=== PATIENT | female | born 1970 | race Hispanic/Latino ===

== ENCOUNTER 2019-04-27 07:32 | Emergency (ER) | payer BC, OTHER ==
[2019-04-27] MEDS ORDERED: ONDANSETRON ODT 4 MG TAB ONE (08:01)
[2019-04-27 08:14] LABS: BASOPHILS % (AUTO) 0.4 % (0.0-5.0); EOSINOPHILS % (AUTO) 1.3 % (0.0-8.0); HEMATOCRIT 38.3 % (36-48); LYMPHOCYTES % (AUTO) 7.9 % (21.0-51.0); MEAN CORPUSCULAR HEMOGLOBIN 28.3 pg (27.0-33.0); MEAN CORPUSCULAR HGB CONC 31.9 g/dL (32.0-36.0); MEAN CORPUSCULAR VOLUME 88.9 fL (79-99); MONOCYTES % (AUTO) 9.4 % (3.0-13.0); NEUTROPHILS % (AUTO) 80.2 % (40.0-77.0); PLATELET COUNT (AUTO) 194 K/uL (130-400); RED BLOOD CELL COUNT(AUTO) 4.31 MIL/uL (4.00-5.50); RED CELL DISTRIBUTION WIDTH 13.7 % (11.0-15.5); WHITE BLOOD COUNT (AUTO) 7.7 K/uL (4.8-10.8)
[2019-04-27 08:23] LABS: CREATININE 1.4 mg/dL (0.5-1.5)
[2019-04-27 08:27] LABS: RAPID GROUP A STREP NEGATIVE (NEGATIVE)
[2019-04-27] MEDS ORDERED: ACETAMINOPHEN EXTRA STRENGTH 500 MG TABLET ONE (10:37)
== END 2019-04-27 11:34 | disposition home or self-care (01) ==
LOC: EDH 07:32
DX: J09.X2 Influenza due to identified novel influenza A virus with other respiratory manifestations (principal)
CPT/HCPCS: 36415; 71046; 80048; 85025; 87804; 87880

== ENCOUNTER 2020-12-22 10:55 | Inpatient (IN) | payer BC, OTHER ==
[~2020-12-22] VITALS: Ht 152.4 cm; Wt 62.7 kg
[2020-12-22 11:21] LABS: BASOPHILS % (AUTO) 0.2 % (0.0-5.0); EOSINOPHILS % (AUTO) 0.3 % (0.0-8.0); HEMATOCRIT 38.1 % (36-48); LYMPHOCYTES % (AUTO) 8.7 % (21.0-51.0); MEAN CORPUSCULAR HEMOGLOBIN 28.3 pg (27.0-33.0); MEAN CORPUSCULAR HGB CONC 31.5 g/dL (32.0-36.0); MEAN CORPUSCULAR VOLUME 89.9 fL (79-99); MONOCYTES % (AUTO) 6.7 % (3.0-13.0); NEUTROPHILS % (AUTO) 82.8 % (40.0-77.0); PLATELET COUNT (AUTO) 213 K/uL (130-400); RED BLOOD CELL COUNT(AUTO) 4.24 MIL/uL (4.00-5.50); RED CELL DISTRIBUTION WIDTH 13.9 % (11.0-15.5)
[2020-12-22 11:30] LABS: CREATININE 1.5 mg/dL (0.5-1.5); POTASSIUM 3.6 mmol/L (3.5-5.1)
[2020-12-22] MEDS ORDERED: MORPHINE 4 MG SYG IV ONE (11:30)
[2020-12-22] MEDS ORDERED: ONDANSETRON 4MG INJ IVP ONE (11:30)
[2020-12-22 11:34] LABS: ALBUMIN 3.5 g/dL (3.5-5.0); BILIRUBIN,TOTAL 0.7 mg/dL (0.2-1.0); TOTAL PROTEIN, SERUM 6.9 g/dL (6.0-8.3)
[2020-12-22] MEDS ORDERED: TACR1CAP10 PO (12:00)
[2020-12-22] MEDS ORDERED: BIOT10005 PO (12:00)
[2020-12-22] MEDS ORDERED: LEVO75TA4 PO (12:13)
[2020-12-22] MEDS ORDERED: CRAN1CAP2 PO (12:13)
[2020-12-22] MEDS ORDERED: FAMO20TA8 PO (12:13)
[2020-12-22] MEDS ORDERED: CHOL200041 PO (12:13)
[2020-12-22] MEDS ORDERED: LACT1CAP78 PO (12:13)
[2020-12-22] MEDS ORDERED: MYCO250C7 PO (12:13)
[2020-12-22] MEDS ORDERED: FOLI0.4T6 PO (12:13)
[2020-12-22] MEDS ORDERED: PRED5TAB44 PO (12:13)
[2020-12-22 12:32] LABS: APPEARANCE,URINE Clear (CLEAR); BILIRUBIN,URINE Negative (NEGATIVE); COLOR,URINE Yellow (YELLOW); GLUCOSE, URINE (UA) Negative (NEGATIVE); KETONES,URINE Negative (NEGATIVE); LEUKOCYTE ESTERASE ,URINE Small (NEGATIVE); NITRATE,URINE Negative (NEGATIVE); OCCULT BLOOD,URINE Negative (NEGATIVE); PROTEIN,URINE Negative (NEGATIVE); UROBILINOGEN,URINE 0.2 mg/dL (0.2-1.0)
[2020-12-22 13:15] LABS: SQUAMOUS EPITHELIAL CELL,UR Few /HPF (0-2)
[2020-12-22 13:16] LABS: BACTERIA,URINE Rare /HPF (None Seen); RBC,URINE None Seen /HPF (0-1); WBC,URINE 0-1 /HPF (0-1)
[2020-12-22] MEDS ORDERED: 0.9%NACL 1000ML 1,000 ML IV SCH (13:30)
[2020-12-22] MEDS: ZOSYN 3.375GM+NS 50ML 50 ML IV SCH ×2 (13:30→22:30)
[2020-12-22] MEDS ORDERED: ZOSYN 3.375GM+NS 50ML 3.38 GM in 0.9%NACL 50ML 50 ML IV SCH (13:30)
[2020-12-22] MEDS ORDERED: ONDANSETRON 4MG TABLET PO PRN (14:30)
[2020-12-22] MEDS ORDERED: MORPHINE 4 MG SYG IVP PRN (14:30)
[2020-12-22] MEDS: DEXTROSE 5 % AND 0.9 % NACL 1,000 ML IV SCH (14:43)
[2020-12-22] MEDS ORDERED: 0.9%NACL 50ML 50 ML IV ONE ×2 (17:03→22:16)
[2020-12-22] MEDS ORDERED: DORZ1DRO7 OP (21:18)
[2020-12-22] MEDS ORDERED: ALBUTEROL IH (21:18)
[2020-12-22] MEDS ORDERED: MONT-39 PO (21:18)
[2020-12-22] MEDS ORDERED: ZOLP5TAB8 PO (21:18)
[2020-12-22] MEDS ORDERED: BIMA12.5OS OD (21:18)
[2020-12-22] MEDS ORDERED: FURO40TA5 PO (21:18)
[2020-12-22] MEDS ORDERED: CELE100C97 PO (21:18)
[2020-12-22] MEDS ORDERED: POTA99TA26 PO (21:18)
[2020-12-22] MEDS ORDERED: ESOM40CA54 PO (21:18)
[2020-12-22] MEDS ORDERED: SOLI10TA7 PO (21:18)
[2020-12-22] MEDS ORDERED: CALC-1009 PO (21:18)
[2020-12-22] MEDS ORDERED: LEVO75CA5 PO (21:18)
[2020-12-22] MEDS ORDERED: ESCI-8 PO (21:18)
[2020-12-22] MEDS ORDERED: ASPI-1197 PO (21:18)
[2020-12-22] MEDS ORDERED: IPRATROPIUM IH (21:23)
[2020-12-22] MEDS ORDERED: FLUTICASONE PO (21:23)
[2020-12-23] MEDS: ZOSYN 3.375GM+NS 50ML 50 ML IV SCH ×3 (05:19→20:55)
[2020-12-23 05:57] LABS: BASOPHILS % (AUTO) 0.2 % (0.0-5.0); EOSINOPHILS % (AUTO) 0.4 % (0.0-8.0); HEMATOCRIT 37.2 % (36-48); LYMPHOCYTES % (AUTO) 5.3 % (21.0-51.0); MEAN CORPUSCULAR HEMOGLOBIN 28.4 pg (27.0-33.0); MEAN CORPUSCULAR HGB CONC 31.7 g/dL (32.0-36.0); MEAN CORPUSCULAR VOLUME 89.4 fL (79-99); MONOCYTES % (AUTO) 5.1 % (3.0-13.0); NEUTROPHILS % (AUTO) 87.8 % (40.0-77.0); PLATELET COUNT (AUTO) 210 K/uL (130-400); RED BLOOD CELL COUNT(AUTO) 4.16 MIL/uL (4.00-5.50); RED CELL DISTRIBUTION WIDTH 13.8 % (11.0-15.5); WHITE BLOOD COUNT (AUTO) 17.4 K/uL (4.8-10.8)
[2020-12-23 06:06] LABS: CREATININE 1.4 mg/dL (0.5-1.5); MAGNESIUM 1.5 mg/dL (1.80-2.40); POTASSIUM 4.5 mmol/L (3.5-5.1)
[2020-12-23] MEDS: ACETAMINOPHEN 325 MG TAB PO PRN ×2 (08:27→14:59)
[2020-12-23] MEDS ORDERED: MYCO250C7 PO (09:15)
[2020-12-23] MEDS ORDERED: FOLI0.4T6 PO (09:17)
[2020-12-23] MEDS ORDERED: CRAN1CAP2 PO (09:21)
[2020-12-23] MEDS ORDERED: PROP1DRO2 OP (09:25)
[2020-12-23] MEDS ORDERED: MULT-1290 PO (09:28)
[2020-12-23 12:50] VITALS: BP 129/81
[2020-12-23] MEDS: DEXTROSE 5 % AND 0.9 % NACL 1,000 ML IV SCH ×2 (14:05→16:48)
[2020-12-23] MEDS ORDERED: MAGNESIUM 2GM PREMIX 50ML 50 ML IV SCH (14:30)
[2020-12-23 15:30] VITALS: BP 114/66
[2020-12-23 19:58] VITALS: BP 123/79
[2020-12-23] MEDS: MYCOPHENOLATE MOFETIL 250 MG CAPSULE PO SCH (21:00)
[2020-12-23 23:28] VITALS: BP 100/61
[2020-12-24] MEDS: DEXTROSE 5 % AND 0.9 % NACL 1,000 ML IV SCH ×2 (00:28→19:50)
[2020-12-24 03:48] VITALS: BP 105/54
[2020-12-24] MEDS: LEVOTHYROXINE 75 MCG TABLET PO SCH (06:02)
[2020-12-24] MEDS: ZOSYN 3.375GM+NS 50ML 50 ML IV SCH ×3 (06:03→23:22)
[2020-12-24 07:26] LABS: CREATININE 1.3 mg/dL (0.5-1.5); POTASSIUM 4.5 mmol/L (3.5-5.1)
[2020-12-24] MEDS ORDERED: PRED5TAB PO (07:28)
[2020-12-24 08:00] VITALS: BP 116/75
[2020-12-24] MEDS: MULTIVITAMIN TABLET PO SCH (08:38)
[2020-12-24] MEDS: FOLIC ACID 1 MG TABLET PO SCH (08:38)
[2020-12-24] MEDS: MYCOPHENOLATE MOFETIL 250 MG CAPSULE PO SCH ×2 (08:38→21:00)
[2020-12-24] MEDS: FAMOTIDINE 20MG TAB PO SCH (08:38)
[2020-12-24] MEDS: ARTIFICAL TEARS SOL 15 ML OP SCH (08:38)
[2020-12-24] MEDS: ASCORBIC ACID PO SCH (08:39)
[2020-12-24] MEDS: [UNRECOGNIZED DRUG - OTHER] PO SCH (08:39)
[2020-12-24] MEDS: BIOTIN 10000 MCG PO SCH (08:39)
[2020-12-24] MEDS: CHOLECALCIFEROL 25 MCG PO SCH (08:39)
[2020-12-24] MEDS: CRANBERRY PO SCH (08:39)
[2020-12-24] MEDS ORDERED: CRANBERRY PO SCH (09:00)
[2020-12-24] MEDS ORDERED: ASCORBIC ACID PO SCH (09:00)
[2020-12-24] MEDS ORDERED: [UNRECOGNIZED DRUG - OTHER] PO SCH (09:00)
[2020-12-24] MEDS: PREDNISONE 5 MG TABLET PO SCH (11:46)
[2020-12-24 12:00] VITALS: BP 136/83
[2020-12-24] MEDS: ACETAMINOPHEN 325 MG TAB PO PRN (14:06)
[2020-12-24 16:00] VITALS: BP 130/85
[2020-12-24 19:53] VITALS: BP 139/84
[2020-12-24 23:19] VITALS: BP 130/82
[2020-12-25 04:23] VITALS: BP 131/74
[2020-12-25 05:31] LABS: HEMATOCRIT 36.8 % (36-48); MEAN CORPUSCULAR HEMOGLOBIN 28.4 pg (27.0-33.0); MEAN CORPUSCULAR HGB CONC 31.5 g/dL (32.0-36.0); MEAN CORPUSCULAR VOLUME 90.2 fL (79-99); RED BLOOD CELL COUNT(AUTO) 4.08 MIL/uL (4.00-5.50); RED CELL DISTRIBUTION WIDTH 13.8 % (11.0-15.5); WHITE BLOOD COUNT (AUTO) 12.2 K/uL (4.8-10.8)
[2020-12-25 05:47] LABS: CREATININE 1.4 mg/dL (0.5-1.5); MAGNESIUM 1.8 mg/dL (1.80-2.40); POTASSIUM 4.2 mmol/L (3.5-5.1)
[2020-12-25] MEDS: LEVOTHYROXINE 75 MCG TABLET PO SCH (06:31)
[2020-12-25] MEDS: ZOSYN 3.375GM+NS 50ML 50 ML IV SCH ×3 (06:31→20:25)
[2020-12-25 07:45] VITALS: BP 132/88
[2020-12-25] MEDS: ASCORBIC ACID PO SCH (09:00)
[2020-12-25] MEDS: BIOTIN 10000 MCG PO SCH (09:00)
[2020-12-25] MEDS: CRANBERRY PO SCH (09:00)
[2020-12-25] MEDS: CHOLECALCIFEROL 25 MCG PO SCH (09:00)
[2020-12-25] MEDS: [UNRECOGNIZED DRUG - OTHER] PO SCH (09:00)
[2020-12-25] MEDS: MYCOPHENOLATE MOFETIL 250 MG CAPSULE PO SCH ×3 (09:00→20:31)
[2020-12-25] MEDS: ARTIFICAL TEARS SOL 15 ML OP SCH (10:22)
[2020-12-25] MEDS: MULTIVITAMIN TABLET PO SCH (10:22)
[2020-12-25] MEDS: FOLIC ACID 1 MG TABLET PO SCH (10:22)
[2020-12-25] MEDS: FAMOTIDINE 20MG TAB PO SCH (10:22)
[2020-12-25 11:45] VITALS: BP 131/85
[2020-12-25] MEDS: PREDNISONE 5 MG TABLET PO SCH (12:53)
[2020-12-25 15:40] VITALS: BP 126/81
[2020-12-25 20:00] VITALS: BP 127/81
[2020-12-26] VITALS: BP 123/72
[2020-12-26 04:00] VITALS: BP 116/74
[2020-12-26] MEDS: ZOSYN 3.375GM+NS 50ML 50 ML IV SCH (04:33)
[2020-12-26] MEDS: LEVOTHYROXINE 75 MCG TABLET PO SCH (05:43)
[2020-12-26 07:50] VITALS: BP 122/79
[2020-12-26] MEDS: FAMOTIDINE 20MG TAB PO SCH (09:08)
[2020-12-26] MEDS: MYCOPHENOLATE MOFETIL 250 MG CAPSULE PO SCH (09:08)
[2020-12-26] MEDS: MULTIVITAMIN TABLET PO SCH (09:08)
[2020-12-26] MEDS: FOLIC ACID 1 MG TABLET PO SCH (09:08)
[2020-12-26] MEDS: BIOTIN 10000 MCG PO SCH (09:44)
[2020-12-26] MEDS: CHOLECALCIFEROL 25 MCG PO SCH (09:44)
[2020-12-26] MEDS: CRANBERRY PO SCH (09:44)
[2020-12-26] MEDS: [UNRECOGNIZED DRUG - OTHER] PO SCH (09:44)
[2020-12-26] MEDS: ASCORBIC ACID PO SCH (09:44)
[2020-12-26] MEDS: ARTIFICAL TEARS SOL 15 ML OP SCH (09:47)
[2020-12-26 11:30] VITALS: BP 132/82
[2020-12-26] MEDS: PREDNISONE 5 MG TABLET PO SCH (12:15)
== END 2020-12-26 14:45 | disposition home or self-care (01) | DRG 392 ==
LOC: EDH 10:55 → EDHIP 13:25 → 3DH 12-23 12:50
PROVIDERS: ADMIT Internal Medicine Infectious Disease; ATTEND Internal Medicine Infectious Disease
DX: K57.32 Diverticulitis of large intestine without perforation or abscess without bleeding (principal); N17.9 Acute kidney failure, unspecified; Z94.0 Kidney transplant status; D84.9 Immunodeficiency, unspecified; E78.5 Hyperlipidemia, unspecified; E03.9 Hypothyroidism, unspecified; Z90.49 Acquired absence of other specified parts of digestive tract; N18.30 Chronic kidney disease, stage 3 unspecified; Z79.52 Long term (current) use of systemic steroids; Z85.72 Personal history of non-Hodgkin lymphomas; Z83.3 Family history of diabetes mellitus; Z82.49 Family history of ischemic heart disease and other diseases of the circulatory system
CPT/HCPCS: 36415; 74176; 80048; 80053; 80197; 81001; 83690; 83735; 85025; 85027; 87040; 87324; G0378; J2270; J2405; J2543; J3475; J7042; J7512; J7517

== ENCOUNTER 2021-04-09 12:43 | Inpatient (IN) | payer BC, OTHER ==
[~2021-04-09] VITALS: Ht 152.4 cm; Wt 64.0 kg
[~2021-04-09 12:43] MED LIST: BIOT10005 PO; CHOL200041 PO; CRAN1CAP2 PO; FAMO20TA8 PO; FOLI0.4T6 PO; LACT1CAP78 PO; LEVO75TA4 PO; MULT-1290 PO; MYCO250C7 PO; PRED5TAB PO; PROP1DRO2 OP
[2021-04-09] MEDS ORDERED: ONDANSETRON ODT 4MG TAB SL ONE (14:30)
[2021-04-09] MEDS ORDERED: ACETAMINOPHEN WITH CODEINE 1 TAB TAB PO ONE (14:30)
[2021-04-09 14:31] LABS: APPEARANCE,URINE Cloudy (CLEAR); BILIRUBIN,URINE Negative (NEGATIVE); COLOR,URINE Yellow (YELLOW); GLUCOSE, URINE (UA) Negative (NEGATIVE); KETONES,URINE Negative (NEGATIVE); LEUKOCYTE ESTERASE ,URINE Small (NEGATIVE); NITRATE,URINE Negative (NEGATIVE); OCCULT BLOOD,URINE Negative (NEGATIVE); PROTEIN,URINE Trace mg/dL (NEGATIVE); UROBILINOGEN,URINE 0.2 mg/dL (0.2-1.0)
[2021-04-09 14:53] LABS: BASOPHILS % (AUTO) 0.3 % (0.0-5.0); EOSINOPHILS % (AUTO) 0.3 % (0.0-8.0); HEMATOCRIT 37.8 % (36-48); LYMPHOCYTES % (AUTO) 26.4 % (21.0-51.0); MEAN CORPUSCULAR HEMOGLOBIN 28.4 pg (27.0-33.0); MEAN CORPUSCULAR HGB CONC 32.3 g/dL (32.0-36.0); MEAN CORPUSCULAR VOLUME 88.1 fL (79-99); MONOCYTES % (AUTO) 16.2 % (3.0-13.0); NEUTROPHILS % (AUTO) 55.5 % (40.0-77.0); PLATELET COUNT (AUTO) 136 K/uL (130-400); RED BLOOD CELL COUNT(AUTO) 4.29 MIL/uL (4.00-5.50); RED CELL DISTRIBUTION WIDTH 13.8 % (11.0-15.5)
[2021-04-09 15:12] LABS: BACTERIA,URINE Few /HPF (None Seen); RBC,URINE 0-1 /HPF (0-1); SQUAMOUS EPITHELIAL CELL,UR Moderate /HPF (0-2)
[2021-04-09 15:19] LABS: CREATININE 1.6 mg/dL (0.5-1.5); POTASSIUM 4.4 mmol/L (3.5-5.1)
[2021-04-09 15:24] LABS: ALBUMIN 3.4 g/dL (3.5-5.0); BILIRUBIN,TOTAL 0.3 mg/dL (0.2-1.0); CRP QUANTITATIVE 17.5 mg/L (0.00-9.0); TOTAL PROTEIN, SERUM 6.4 g/dL (6.0-8.3)
[2021-04-09] MEDS ORDERED: 0.9%NACL 1000ML 1,000 ML IV ONE ×2 (15:52→16:00)
[2021-04-09] MEDS ORDERED: CEFTRIAXONE 1G VIAL IVP ONE (16:00)
[2021-04-09 16:28] LABS: BAND NEUTROPHILS % (MANUAL) 12 % (0-2); BASOPHILS % (MANUAL) 1 % (0-2); EOSINOPHILS % (MANUAL) 1 % (1-6); LYMPHOCYTES % (MANUAL) 22 % (22-44); MAN.DIFF COMMENT-IMPRESSION MANUAL DIFFERENTIAL; MONOCYTES % (MANUAL) 12 % (2-9); REACTIVE LYMPHOCYTES 2 % (0-0); SEGMENTED NEUTROPHILS % 50 % (40-70)
[2021-04-09 16:29] LABS: PLATELET MORPHOLOGY COMMENT LARGE PLTS PRESENT
[2021-04-09] MEDS: 0.9%NACL 1000ML 1,000 ML IV SCH (17:59)
[2021-04-09] MEDS ORDERED: CRAN1CAP10 PO (20:36)
[2021-04-09] MEDS ORDERED: TACR1CAP10 PO (20:36)
[2021-04-09] MEDS ORDERED: PRED5TAB PO (20:36)
[2021-04-09] MEDS ORDERED: vitamin d3 PO (20:36)
[2021-04-09] MEDS ORDERED: MULT-1250 PO (20:36)
[2021-04-09] MEDS ORDERED: LEVO75TA4 PO (20:36)
[2021-04-09] MEDS ORDERED: FAMO20TA8 PO (20:36)
[2021-04-09] MEDS ORDERED: BIOT10005 PO (20:36)
[2021-04-09] MEDS ORDERED: folic acid PO (20:36)
[2021-04-09] MEDS ORDERED: MYCO250C7 PO (20:36)
[2021-04-09] MEDS: ONDANSETRON 4MG INJ IVP PRN (21:07)
[2021-04-09] MEDS: ACETAMINOPHEN 325 MG TAB PO PRN (21:07)
[2021-04-09] MEDS ORDERED: LEVOTHYROXINE 75 MCG TABLET PO PRN (22:30)
[2021-04-10] MEDS: 0.9%NACL 1000ML 1,000 ML IV SCH ×2 (04:10→13:00)
[2021-04-10 04:30] LABS: EOSINOPHILS % (AUTO) 0.4 % (0.0-8.0); HEMATOCRIT 33.6 % (36-48); LYMPHOCYTES % (AUTO) 38.2 % (21.0-51.0); MEAN CORPUSCULAR HEMOGLOBIN 28.5 pg (27.0-33.0); MEAN CORPUSCULAR HGB CONC 31.8 g/dL (32.0-36.0); MEAN CORPUSCULAR VOLUME 89.4 fL (79-99); MONOCYTES % (AUTO) 15.3 % (3.0-13.0); NEUTROPHILS % (AUTO) 45.3 % (40.0-77.0); PLATELET COUNT (AUTO) 133 K/uL (130-400); RED BLOOD CELL COUNT(AUTO) 3.76 MIL/uL (4.00-5.50); RED CELL DISTRIBUTION WIDTH 13.9 % (11.0-15.5); WHITE BLOOD COUNT (AUTO) 2.5 K/uL (4.8-10.8)
[2021-04-10 05:10] LABS: ALBUMIN 2.7 g/dL (3.5-5.0); BILIRUBIN,TOTAL 0.2 mg/dL (0.2-1.0); CREATININE 1.4 mg/dL (0.5-1.5); MAGNESIUM 1.4 mg/dL (1.80-2.40); POTASSIUM 5.7 mmol/L (3.5-5.1)
[2021-04-10] MEDS ORDERED: KAYEXALATE 15GM/60ML PO ONE (09:00)
[2021-04-10] MEDS ORDERED: KAYEXALATE 15GM/60ML ONE (09:03)
[2021-04-10] MEDS: BIOTIN PO SCH ×2 (09:09→21:00)
[2021-04-10] MEDS: MYCOPHENOLATE MOFETIL 250 MG CAPSULE PO SCH ×2 (09:09→21:07)
[2021-04-10] MEDS: CRANBERRY PO SCH (09:09)
[2021-04-10] MEDS: VIT C PO SCH (09:09)
[2021-04-10] MEDS: PREDNISONE 5 MG TABLET PO SCH (09:09)
[2021-04-10] MEDS: VIT D3 PO SCH (09:09)
[2021-04-10] MEDS: FOLIC ACID 1 MG TABLET PO SCH (09:09)
[2021-04-10] MEDS: TACROLIMUS 1 MG CAPSULE PO SCH ×2 (09:10→21:06)
[2021-04-10] MEDS: MULTIVITAMINS/MINERALS/IRO TAB PO SCH (09:10)
[2021-04-10] MEDS: FAMOTIDINE 20MG TAB PO SCH (09:10)
[2021-04-10] MEDS: ACETAMINOPHEN 325 MG TAB PO PRN ×2 (09:18→21:38)
[2021-04-10] MEDS: ONDANSETRON 4MG INJ IVP PRN (09:32)
[2021-04-10] MEDS: CEFTRIAXONE 1G VIAL IVP SCH (16:31)
[2021-04-10] MEDS ORDERED: MAGNESIUM 2GM PREMIX 50ML 50 ML IV PRN (19:00)
[2021-04-10 19:45] VITALS: BP 131/56
[2021-04-11] VITALS (9 sets, daily range): BP systolic 109–132; BP diastolic 53–85
[2021-04-11 04:16] LABS: EOSINOPHILS % (AUTO) 0.7 % (0.0-8.0); HEMATOCRIT 37.8 % (36-48); LYMPHOCYTES % (AUTO) 41.7 % (21.0-51.0); MEAN CORPUSCULAR VOLUME 90.4 fL (79-99); MONOCYTES % (AUTO) 14.5 % (3.0-13.0); NEUTROPHILS % (AUTO) 42.4 % (40.0-77.0); PLATELET COUNT (AUTO) 154 K/uL (130-400); RED BLOOD CELL COUNT(AUTO) 4.18 MIL/uL (4.00-5.50); RED CELL DISTRIBUTION WIDTH 14.2 % (11.0-15.5); WHITE BLOOD COUNT (AUTO) 2.8 K/uL (4.8-10.8)
[2021-04-11 04:20] LABS: CREATININE 1.3 mg/dL (0.5-1.5); MAGNESIUM 1.9 mg/dL (1.80-2.40)
[2021-04-11] MEDS: 0.9%NACL 1000ML 1,000 ML IV SCH ×3 (05:43→16:58)
[2021-04-11] MEDS: VIT D3 PO SCH (09:00)
[2021-04-11] MEDS: VIT C PO SCH (09:00)
[2021-04-11] MEDS: CRANBERRY PO SCH (09:00)
[2021-04-11] MEDS: TACROLIMUS 1 MG CAPSULE PO SCH ×3 (09:00→21:00)
[2021-04-11] MEDS: BIOTIN PO SCH ×2 (09:00→21:00)
[2021-04-11] MEDS: MULTIVITAMINS/MINERALS/IRO TAB PO SCH (09:00)
[2021-04-11] MEDS: MYCOPHENOLATE MOFETIL 250 MG CAPSULE PO SCH ×3 (09:00→21:00)
[2021-04-11] MEDS: FOLIC ACID 1 MG TABLET PO SCH (09:14)
[2021-04-11] MEDS: FAMOTIDINE 20MG TAB PO SCH (09:14)
[2021-04-11] MEDS: PREDNISONE 5 MG TABLET PO SCH (09:14)
[2021-04-11] MEDS: ACETAMINOPHEN 325 MG TAB PO PRN ×2 (09:23→15:25)
[2021-04-11] MEDS: KETOROLAC 15MG/ML VIAL (15MG/ML) IV SCH ×2 (09:46→13:43)
[2021-04-11] MEDS: CEFTRIAXONE 1G VIAL IVP SCH (15:24)
[2021-04-11] MEDS ORDERED: ACETAMINOPHEN 325 MG TAB ONE (19:42)
[2021-04-12] MEDS: 0.9%NACL 1000ML 1,000 ML IV SCH (01:16)
[2021-04-12 04:00] VITALS: BP 120/70
[2021-04-12] MEDS: VIT D3 PO SCH (09:00)
[2021-04-12] MEDS: FAMOTIDINE 20MG TAB PO SCH (09:00)
[2021-04-12] MEDS: TACROLIMUS 1 MG CAPSULE PO SCH (09:00)
[2021-04-12] MEDS: PREDNISONE 5 MG TABLET PO SCH (09:00)
[2021-04-12] MEDS: FOLIC ACID 1 MG TABLET PO SCH (09:00)
[2021-04-12] MEDS: MULTIVITAMINS/MINERALS/IRO TAB PO SCH (09:00)
[2021-04-12] MEDS: VIT C PO SCH (09:00)
[2021-04-12] MEDS: CRANBERRY PO SCH (09:00)
[2021-04-12] MEDS: MYCOPHENOLATE MOFETIL 250 MG CAPSULE PO SCH (09:00)
[2021-04-12] MEDS: BIOTIN PO SCH (09:00)
[2021-04-12] MEDS: ACETAMINOPHEN 325 MG TAB PO PRN (10:02)
[2021-04-12] MEDS ORDERED: KETOROLAC 30MG VIAL (30MG/ML) IV SCH (12:00)
== END 2021-04-12 14:15 | disposition home or self-care (01) | DRG 177 ==
LOC: EDH 12:43 → EDHIP 15:58 → 4AH 04-10 19:49 → UNDODISIN 04-11 17:47
PROVIDERS: ADMIT Internal Medicine Infectious Disease; ATTEND Internal Medicine Infectious Disease
DX: U07.1 COVID-19 (principal); J96.91 Respiratory failure, unspecified with hypoxia; J18.9 Pneumonia, unspecified organism; N17.9 Acute kidney failure, unspecified; E87.1 Hypo-osmolality and hyponatremia; N39.0 Urinary tract infection, site not specified; T86.19 Other complication of kidney transplant; D84.9 Immunodeficiency, unspecified; E03.9 Hypothyroidism, unspecified; E86.0 Dehydration; E87.5 Hyperkalemia; I12.9 Hypertensive chronic kidney disease with stage 1 through stage 4 chronic kidney disease, or unspecified chronic kidney disease; E11.22 Type 2 diabetes mellitus with diabetic chronic kidney disease; Y83.0 Surgical operation with transplant of whole organ as the cause of abnormal reaction of the patient, or of later complication, without mention of misadventure at the time of the procedure; Z83.3 Family history of diabetes mellitus; Z80.9 Family history of malignant neoplasm, unspecified
CPT/HCPCS: 36415; 71045; 80048; 80053; 81001; 83605; 83735; 84132; 85025; 86140; G0378; J0696; J1885; J2405; J3475; J7030; J7507; J7512; J7517